=== PATIENT | female | born 1975 ===

== ENCOUNTER 2025-01-20 12:00 | Emergency (ER) | payer OTHER ==
[~2025-01-20] VITALS: Ht 162.6 cm; Wt 72.6 kg
[2025-01-20] MEDS ORDERED: METHYLPREDNISOLONE SOD SUCC 125 MG VIAL IV ONE (14:00)
[2025-01-20] MEDS ORDERED: BENZONATATE 100 MG CAPSULE PO ONE (14:00)
[2025-01-20] MEDS ORDERED: LEVALBUTEROL HCL 1.25 MG/3 ML SOLUTION IH SCH (14:00)
[2025-01-20] MEDS ORDERED: IPRATROPIUM BROMIDE 0.5 MG/2.5 ML AMPUL.NEB IH SCH (14:00)
[2025-01-20 15:25] LABS: BASO % 0.6 % (0.1-1.2); EOS # 0.50 (0.04-0.54); EOS % 7.1 % (0.7-7.0); LYMPH # 1.74 (1.18-3.74); LYMPH % 24.8 % (19.3-53.1); MEAN PLATELET VOLUME 10.30 fl (9.4-12.4); MONO # 0.33 (0.24-0.82); MONO % 4.7 % (4.7-12.5); NEUT # 4.40 (1.56-6.13); NEUT % 62.7 % (34.0-71.1); RED CELL DISTRIBUTION WIDTH 12.9 % (11.6-14.4)
[2025-01-20 15:56] LABS: BUN CREA RATIO 13.0 (7.0-25.0); CREATININE SERUM 1.08 mg/dL (0.55-1.02); GFR 54.15; GLUCOSE FASTING 98.0 mg/dL (65-100); OSMOLALITY SERUM 284.0 MOSM/KG (275-295)
[2025-01-20 16:06] LABS: COVID-19 AG NEGATIVE (NEGATIVE)
== END 2025-01-20 18:40 | disposition home or self-care (01) ==
LOC: ER 12:01
PROVIDERS: General Practice
DX: J45.998 Other asthma (principal); Z20.822 Contact with and (suspected) exposure to COVID-19